=== PATIENT | male | born 1940 | race Caucasian/White ===

== ENCOUNTER → 2017-02-26 | Outpatient (CLI) | payer OTHER | END | disposition home or self-care (01) | LOC: PCVCCLINIC 15:28 | PROVIDERS: ATTEND Internal Medicine | DX: I25.10 Atherosclerotic heart disease of native coronary artery without angina pectoris (principal); I10 Essential (primary) hypertension; I65.29 Occlusion and stenosis of unspecified carotid artery; G47.33 Obstructive sleep apnea (adult) (pediatric); E11.9 Type 2 diabetes mellitus without complications; E78.5 Hyperlipidemia, unspecified; Z79.82 Long term (current) use of aspirin; Z79.899 Other long term (current) drug therapy | CPT/HCPCS: 80061; 93005; G0463 ==

== ENCOUNTER → 2017-10-06 | Outpatient (CLI) | payer OTHER | END | disposition home or self-care (01) | LOC: PCVCCLINIC 14:41 | DX: I25.10 Atherosclerotic heart disease of native coronary artery without angina pectoris (principal); E78.5 Hyperlipidemia, unspecified; I10 Essential (primary) hypertension; I65.23 Occlusion and stenosis of bilateral carotid arteries; E11.9 Type 2 diabetes mellitus without complications; G47.33 Obstructive sleep apnea (adult) (pediatric); D35.2 Benign neoplasm of pituitary gland; R94.31 Abnormal electrocardiogram [ECG] [EKG]; Z79.82 Long term (current) use of aspirin; Z79.899 Other long term (current) drug therapy; Z79.84 Long term (current) use of oral hypoglycemic drugs | CPT/HCPCS: 80061; 93005; G0463 ==

== ENCOUNTER → 2018-04-06 | Outpatient (CLI) | payer OTHER | END | disposition home or self-care (01) | LOC: PCVCCLINIC 14:41 | DX: I25.10 Atherosclerotic heart disease of native coronary artery without angina pectoris (principal); E78.5 Hyperlipidemia, unspecified; I10 Essential (primary) hypertension; I65.23 Occlusion and stenosis of bilateral carotid arteries; E11.9 Type 2 diabetes mellitus without complications; G47.33 Obstructive sleep apnea (adult) (pediatric); G45.0 Vertebro-basilar artery syndrome; D35.2 Benign neoplasm of pituitary gland; R94.31 Abnormal electrocardiogram [ECG] [EKG]; Z79.82 Long term (current) use of aspirin | CPT/HCPCS: 93005; G0463 ==

== ENCOUNTER → 2018-10-07 | Outpatient (CLI) | payer OTHER | LOC: PCVCCLINIC 14:28 | PROVIDERS: ATTEND Internal Medicine | DX: I25.10 Atherosclerotic heart disease of native coronary artery without angina pectoris (principal); E78.5 Hyperlipidemia, unspecified; I65.23 Occlusion and stenosis of bilateral carotid arteries; I11.0 Hypertensive heart disease with heart failure; I50.9 Heart failure, unspecified; E11.9 Type 2 diabetes mellitus without complications; G47.33 Obstructive sleep apnea (adult) (pediatric); D35.2 Benign neoplasm of pituitary gland | CPT/HCPCS: 36415; 80061; 93005; G0463 ==

== ENCOUNTER → 2019-04-14 | Outpatient (CLI) | payer OTHER ==
--- NOTE | 2019-04-14 14:36 | PCVCIMAG ---
APPROVED REPORT Study performed: 04/14/2019 13:18:21 EXAM: Comprehensive 2D, Doppler, and color-flow Echocardiogram Patient Location: Echo lab Room #: 2Status: routine BSA: 2.33 HR: 77 bpmBP: 122/60 mmHg Rhythm: NSR Other Information Study Quality: Adequate Risk Factors: Cardiac Risk Factors: HTN, Hyperlipidemia, DM, JUNIOR Indications Diabetes Dyspnea CAD Hypertension/HDD S/P CABG 2D Dimensions IVSd: 9.08 (7-11mm)LVOT Diam: 19.67 (18-24mm) LVDd: 46.14 mm PWd: 7.57 (7-11mm)Ascending Ao: 29.10 (22-36mm) LVDs: 30.54 (25-40mm) Left Atrium: 33.11 (27-40mm) Aortic Root: 24.50 mm LV Single Plane 4CH: 50.77 % LV Single Plane 2CH: 52.85 % Biplane EF: 51.3 % Volumes Left Atrial Volume (Systole) Single Plane 4CH: 67.06 mLSingle Plane 2CH: 95.66 mL Biplane LA Volume: 85.00 mLLA ESV Index: 36.00 mL/m2 Aortic Valve AoV Peak Remy.: 1.67 m/s AO Peak Gr.: 11.18 mmHgLVOT Max P.27 mmHg LVOT Max V: 0.56 m/s ORTIZ Vmax: 1.02 cm2 Mitral Valve E/A Ratio: 0.6 MV Decel. Time: 188.39 ms MV E Max Remy.: 0.55 m/s MV A Remy.: 0.87 m/s IVRT: 96.89 ms TDI E/Lateral E': 6.88E/Medial E': 11.00 Medial E' Remy.: 0.05 m/s Lateral E' Remy.: 0.08 m/s Pulmonary Valve PV Peak Remy.: 0.59 m/sPV Peak Gr.: 1.41 mmHg Pulmonary Vein P Vein S: 0.48 m/sP Vein A: 0.19 m/s P Vein D: 0.41 m/sP Vein A Dur.: 62.3 msec P Vein S/D Ratio: 1.17 Tricuspid Valve TR Peak Remy.: 1.93 m/s TR Peak Gr.: 14.91 mmHg TV Vmax: 0.52 m/sPA Pressure: 22.00 mmHg Left Ventricle The left ventricle is normal size. Paradoxical septal motion consistent with post-operative state. There is normal left ventricular wall thickness. Left ventricular systolic function is normal. The left ventricular ejection fraction is within the normal range. LVEF is 50-55%. Mild diastolic dysfunction is present (impaired relaxation pattern). Right Ventricle The right ventricle is normal size. The right ventricular systolic function is normal. Atria Left atrium is borderline dilated. The right atrium size is normal. Aortic Valve Aortic valve is trileaflet, mildly calcified. No aortic regurgitation is present. There is no aortic valvular stenosis. Mitral Valve Mild mitral annular calcification There is no mitral valve regurgitation noted. No evidence of mitral valve stenosis. Tricuspid Valve The tricuspid valve is normal in structure. Trace to mild tricuspid regurgitation with a PA pressure of 22 mmHg. No apparent pulmonary hypertension. Pulmonic Valve The pulmonary valve is normal in structure. There is no pulmonic valvular regurgitation. Great Vessels The aortic root is normal in size. The ascending aorta is normal in size. Aortic arch is not well visualized. Descending aorta is normal in caliber. IVC is not well visualized. Pericardium There is no pericardial effusion. There is no pleural effusion. <Conclusion> Left ventricular systolic function is normal. LVEF is 50-55%. Mild diastolic dysfunction Aortic valve is trileaflet, mildly calcified. No aortic regurgitation or stenosis Mild mitral annular calcification. No mitral valve regurgitation Trace to mild tricuspid regurgitation with a pulmonary artery pressure of 22 mmHg. There is no pericardial effusion.
== END | disposition home or self-care (01) ==
LOC: PCVCIMAG 12:58
PROVIDERS: ATTEND Internal Medicine
DX: I08.3 Combined rheumatic disorders of mitral, aortic and tricuspid valves (principal); I25.10 Atherosclerotic heart disease of native coronary artery without angina pectoris; E78.5 Hyperlipidemia, unspecified; I65.23 Occlusion and stenosis of bilateral carotid arteries; G47.33 Obstructive sleep apnea (adult) (pediatric); D35.2 Benign neoplasm of pituitary gland; I12.9 Hypertensive chronic kidney disease with stage 1 through stage 4 chronic kidney disease, or unspecified chronic kidney disease; E11.22 Type 2 diabetes mellitus with diabetic chronic kidney disease; N18.9 Chronic kidney disease, unspecified; E66.9 Obesity, unspecified; J44.9 Chronic obstructive pulmonary disease, unspecified; E78.00 Pure hypercholesterolemia, unspecified; Z79.899 Other long term (current) drug therapy; Z79.82 Long term (current) use of aspirin; Z95.1 Presence of aortocoronary bypass graft; Z79.84 Long term (current) use of oral hypoglycemic drugs
CPT/HCPCS: 93306